=== PATIENT | female | born 1955 | race Caucasian/White ===

== ENCOUNTER 2023-07-22 11:13 | Outpatient (AMB) | payer MEDICARE, OTHER, SELFPAY ==
--- NOTE | 2023-07-22 11:24 | A.OFFPC_ITS ---
Vital Signs 07/22/23 11:28 Height 5 ft 2.6 in Weight 211 lb 8 oz BMI 37.9 BP 138/84 Blood Pressure Location Rt radial Position Sitting Respiration 14 Pulse Source Pulse Oximeter Temp 97.8 F Temp Source Oral Pulse Oximetry (%) 99 Oxygen Delivery Method Room Air Intake Visit Reasons: Establish Care transfer from [facility] Intake Note: New patient visit Continuum Of Care Manager Required: No Allergies No Known Allergies Allergy (Verified 07/22/23 11:24) Medication List - Last Reconciled 07/22/23 by Marguerite Castillo MD ezetimibe 10 mg PO DAILY nystatin (Nystop) 1 appl topical BID-TID pravastatin 10 mg PO BEDTIME raloxifene 60 mg PO DAILY Tobacco use date assessed: 07/22/23 Fall risk assessment: No Falls in past year Last assessed Fall Risk: 07/22/23 Dental Screening Dental Screen Date: 07/22/23 Did you have a dental visit in the last 12 months?: No Did you have a dental problem in the last 6 months where you did not have access to dental care?: No Was dental information given to patient?: Patient declined HPI HPI Comments History of Present Illness Details The patient is a 67 year old female with a past medical history of breast cancer, hyperlipidemia presenting to reestablish care CV: on pravastatin 10mg daily, zetia 10mg daily. History of breast cancer: UTD with monitoring. Follows with breast center. Continyues on raloxifene [facility] Medical History (Updated 07/27/23 @ 11:42 by Marguerite Castillo MD) Hypercholesteremia Family History (Updated 07/22/23 @ 12:17 by Lady Dominguez CMA) Father Diabetes Social History (Updated 07/22/23 @ 11:28 by Lady Dominguez CMA) Housing: House Patient Tobacco Use Status: Never used Tobacco service: No Current occupational status: retired Cognitive needs: No Hearing needs: No Vision needs: No Questionnaire PHQ-9 Over the last 2 weeks, how often have you been bothered by any of the following problems? 1. Little interest or pleasure in doing things: not at all 2. Feeling down, depressed, or hopeless: not at all 3. Trouble falling or staying asleep, or sleeping too much: not at all 4. Feeling tired or having little energy: not at all 5. Poor appetite or overeating: not at all 6. Feeling bad about yourself - or that you are a failure or have let yourself or your family down: not at all 7. Trouble concentrating on things, such as reading the newspaper or watching television: not at all 8. Moving or speaking so slowly that other people could have noticed. Or the opposite - being so fidgety or restless that you have been moving around a lot more than usual: not at all 9. Thoughts that you would be better off or of hurting yourself in some way: not at all Total score: 0 Depression Screening Interpretation: Negative Depression Screening Done: Yes 21134 - PHQ-9 Billing: Yes Source: Developed by Drs. Corey Yi, Dayna Vargas, Go Alexander and colleagues, with an educational marcin from [employer]. Thrive Questionnaire Date Thrive assessed: 07/22/23 I am a: Patient What is your living situation today?: I have a steady place to live Within the past 12 months, did the food you bought not last and you didn't have the money to get more?: Never true Within the past 12 months, did you worry whether your food would run out before you got money to buy more?: Never true Do you have trouble paying for medicines?: No Do you have trouble getting transportation to medical appointments?: No Do you have trouble paying your heating and electricity bill?: No Do you have trouble taking care of your child, family member or friend?: No Do you have trouble with day-to-day activities such as bathing, preparing meals, shopping, managing finances, etc.?: No Are you currently unemployed and looking for a job?: No Are you interested in more education?: No Please select the resources that you would like help with: None Currently or been in a relationship where the following occur: no concerns reported THRIVE Score: 0 AUDIT C Alcohol Use Questionnaire (AUDIT-C) 1. How often do you have a drink containing alcohol?: Never 3. How often do you have six or more drinks on one occasion?: Never Total Score: 0 MUSHTAQ-7 AMB Questionnaire MUSHTAQ-7 Date MUSHTAQ - 7 assessed: 07/22/23 Feeling nervous, anxious, or on edge: 0 = Not at all Not being able to stop or control worryin = Not at all Worrying too much about different things: 0 = Not at all Trouble relaxin = Not at all Being so restless that it is hard to sit still: 0 = Not at all Becoming easily annoyed or irritable: 0 = Not at all Feeling afraid as if something awful might happen: 0 = Not at all Total MUSHTAQ-7 score (0-4 normal; 5-9 mild; 10-14 moderate; 15-21 severe): 0 Source: Developed by Drs. Corey Yi, Dayna Vargas, Go Alexander and colleagues, with an educational marcin from [employer]. MUSHTAQ-7 Assessment Billing MUSHTAQ-7 Assessment Tool: MUSHTAQ-7 Assessment 24069 Review of Systems Const Details: see HPI Physical exam (Primary Care) Vital Signs: Last Vital Signs Temp 97.8 F 07/22/23 11:28 Resp 14 07/22/23 11:28 BP 138/84 07/22/23 11:28 Pulse Ox 99 07/22/23 11:28 Oxygen Delivery Method Room Air 07/22/23 11:28 PHYSICAL EXAM: GENERAL: Alert and oriented x 3. NAD EYES: EOMI. Anicteric. HENT: Moist mucous membranes. No scleral icterus. No cervical lymphadenopathy. LUNGS: Clear to auscultation bilaterally. CARDIOVASCULAR: Regular rate and rhythm. No murmur. No JVD. ABDOMEN: Soft, non-tender +bs EXTREMITIES: No edema. Non-tender. SKIN: No rashes or lesions. Warm. NEUROLOGIC: No focal neurological deficits. CN II-XII grossly intact PSYCHIATRIC: Cooperative. Appropriate mood and affect BMI result Body Mass Index 37.9 Tobacco/Smoking Status: Tobacco use Status Tobacco use date assessed 07/22/23 07/22/23 11:32 Patient Tobacco Use Status Never used Tobacco 07/22/23 11:32 PHQ-9: PHQ-9 Score PHQ-9: Total score 0 07/22/23 12:18 Depression Screening Interpretation: Negative Thrive Assessment: Date of Thrive Assessment Date Thrive assessed 07/22/23 07/22/23 12:17 Currently or been in a relationship where the following occur: no concerns reported Assessment and Plan Assessment & Plan (1) Hyperlipidemia: Code(s): E78.5 - Hyperlipidemia, unspecified Qualifiers: Hyperlipidemia type: unspecified Qualified Code(s): E78.5 - Hyperlipidemia, unspecified (2) History of breast cancer: Comment: continue f/up breast center Code(s): Z85.3 - Personal history of malignant neoplasm of breast Orders: Orders Vitamin B12 and Folate 07/23/23 E78.5 - Hyperlipidemia, unspecified, R41.3 - Other amnesia, Z13.0 - Encounter for screening for diseases of the blood and blood-forming organs and certain disorders involving the immune mechanism, Z13.228 - Encounter for screening for other metabolic disorders Vitamin D 1,25 dihydroxy 07/23/23 E78.5 - Hyperlipidemia, unspecified, R41.3 - Other amnesia, Z13.0 - Encounter for screening for diseases of the blood and blood-forming organs and certain disorders involving the immune mechanism, Z13.228 - Encounter for screening for other metabolic disorders Comprehensive Met. Panel 07/23/23 E78.5 - Hyperlipidemia, unspecified, R41.3 - Other amnesia, Z13.0 - Encounter for screening for diseases of the blood and blood-forming organs and certain disorders involving the immune mechanism, Z13.228 - Encounter for screening for other metabolic disorders Complete Blood Count Auto Diff 07/23/23 E78.5 - Hyperlipidemia, unspecified, R41.3 - Other amnesia, Z13.0 - Encounter for screening for diseases of the blood and blood-forming organs and certain disorders involving the immune mechanism, Z13.228 - Encounter for screening for other metabolic disorders Lipid Panel 07/23/23 E78.5 - Hyperlipidemia, unspecified, R41.3 - Other amnesia, Z13.0 - Encounter for screening for diseases of the blood and blood- forming organs and certain disorders involving the immune mechanism, Z13.228 - Encounter for screening for other metabolic disorders Referrals Cologuard Test Z12.11 - Encounter for screening for malignant neoplasm of colon, Z12.12 - Encounter for screening for malignant neoplasm of rectum Medications: New ezetimibe 10 mg PO DAILY 90 tabs 3RF 90 days pravastatin 10 mg PO BEDTIME 90 tabs 3RF 90 days Coding Level of Care Code Tele Est Pt Level 4 (09255) Diagnoses Hyperlipidemia, unspecified hyperlipidemia type E78.5 Hyperlipidemia type: unspecified History of breast cancer Z85.3 Additional Codes MUSHTAQ-7 Assessment Billing - MUSHTAQ-7 Assessment Tool: MUSHTAQ-7 Assessment 45316 ([id number])
[2023-07-22 11:28] VITALS: BP 138/84; RESP 14; TEMP 36.6; O2SAT 99; BMI 37.9
== END 2023-07-22 12:35 | disposition home or self-care (01) ==
PROVIDERS: PCP Internal Medicine; Visit Provider Internal Medicine
DX: E78.5 Hyperlipidemia, unspecified (principal); Z85.3 Personal history of malignant neoplasm of breast
CPT/HCPCS: 99214

== ENCOUNTER 2023-07-23 09:15 | Outpatient (REF) | payer MEDICARE, OTHER, SELFPAY ==
[2023-07-23 11:57] LABS: MANUAL DIFF FLAG NO
[2023-07-23 12:15] LABS: Basophils Percent Auto 0.6 % (0-2); Eosinophils Absolute Auto 0.2 X10*3/uL (0.0-0.4); Eosinophils Percent Auto 2.9 % (0-4); Hematocrit 39.9 % (37.0-47.0); Hemoglobin 12.9 g/dl (12.0-16.0); Imm Gran Abs Auto 0.02 X10*3/uL (0.00-0.03); Imm Gran Pct Auto 0.3 % (0.0-0.4); Lymphocytes Absolute Auto 2.6 X10*3/uL (1.2-4.9); Lymphocytes Percent Auto 39.9 % (20-40); Mean Corpuscular HGB Conc 32.3 g/dl (31.0-35.0); Mean Corpuscular Hemoglobin 30.2 pg (27.0-33.0); Mean Corpuscular Volume 93.4 fL (80.0-98.0); Mean Platelet Volume 12.8 fL (9.4-12.3); Monocytes Absolute Auto 0.5 X10*3/uL (0.1-1.2); Monocytes Percent Auto 7.4 % (2-11); Neutrophils Absolute Auto 3.2 x10*3/uL (2.0-8.3); Neutrophils Percent Auto 48.9 % (45-73); Platelet Count 172 X10*3/uL (160-400); Red Blood Count 4.27 X10*6/uL (4.20-5.50); Red Cell Distribution Width 13.7 % (11.0-16.0); White Blood Count 6.5 X10*3/uL (4.8-10.8)
[2023-07-23 12:36] LABS: Alanine Aminotransferase 27 U/L (0-31); Alkaline Phosphatase 60 U/L (39-117); Anion Gap 12 (12-20); Aspartate Amino Transferase 25 U/L (5-31); Bilirubin Total 0.5 mg/dL (0.0-1.0); Blood Urea Nitrogen 16 mg/dL (9-16); Calcium 9.4 mg/dL (8.4-10.2); Carbon Dioxide 28 mmol/L (22-29); Chloride 106 mmol/L (96-108); Cholesterol 194 mg/dL (<200); Estimated Glomerular Filt Rate > 60; Glucose Random 107 mg/dL (60-115); HDL Cholesterol 73 mg/dL (>40); LDL Cholesterol Calculated 104 mg/dL (<100); Potassium 3.8 mmol/L (3.3-5.1); Sodium 142 mmol/L (135-145); Total Protein 6.8 g/dL (6.5-8.0); Triglycerides 86 mg/dL (<150)
[2023-07-23 12:56] LABS: Folate 7.8 ng/mL (> or = 4.0); Vitamin B12 467 pg/mL (200-900)
[2023-07-29 15:43] LABS: VITAMIN D (1,25 OH) D3 16 pg/mL; Vit D (1,25-Dihydroxy) Total 46 pg/mL (18-72); Vitamin D (1,25 OH) D2 30 pg/mL
== END 2023-07-23 09:16 | disposition home or self-care (01) ==
LOC: HO.WFDLDS 09:15
PROVIDERS: Visit Provider Internal Medicine
DX: E78.5 Hyperlipidemia, unspecified (principal); Z13.0 Encounter for screening for diseases of the blood and blood-forming organs and certain disorders involving the immune mechanism; Z13.228 Encounter for screening for other metabolic disorders; R41.3 Other amnesia
CPT/HCPCS: 36415; 80053; 80061; 82607; 82652; 82746; 85025

== ENCOUNTER 2023-09-01 10:24 | Outpatient (AMB) | payer MEDICARE, OTHER, SELFPAY ==
[2023-09-01 10:29] VITALS: BP 112/58; PULSE 97; RESP 13; O2SAT 99; BMI 35.9
--- NOTE | 2023-09-01 10:29 | MHC.PC.OV ---
Vital Signs 09/01/23 10:29 Height 5 ft 5 in Weight 216 lb BMI 35.9 BP 112/58 L Blood Pressure Location Lt brachial Position Sitting Respiration 13 Pulse 97 Pulse Source Pulse Oximeter Pulse Oximetry (%) 99 Oxygen Delivery Method Room Air Intake Visit Reasons: est/lower back pain/possible pt needed? Intake Note: Patient is here to discuss low back pain. Patient is accompanied by her spouse, who states patients is having memory concerns. Manager Regional Sales Required: No Allergies No Known Allergies Allergy (Verified 09/01/23 10:36) Medication List - Last Reconciled 09/07/23 by Marguerite Castillo MD ezetimibe 10 mg PO DAILY 90 days nystatin (Nystop) 1 appl topical BID-TID pravastatin 10 mg PO BEDTIME 90 days prednisone 40 mg (2 x 20 mg) PO DAILY 5 days raloxifene 60 mg PO DAILY tramadol 50 mg PO Q8H PRN 7 days Tobacco use date assessed: 07/22/23 Fall risk assessment: No Falls in past year Last assessed Fall Risk: 09/01/23 Dental Screening Dental Screen Date: 07/22/23 HPI HPI Comments History of Present Illness Details The patient is a 67 year old female with a past medical history of breast cancer, hyperlipidemia presenting to [facility] care. She is accompanied by her CV: on pravastatin 10mg daily, zetia 10mg daily. She reports worsening memory issues over the past 1-2 years. Says after snf noticeable. She is trying do puzzles, sudoko etc Recently seen (08/22/23)in the [facility] ER for right buttock pain x 2 days. She had xray hip with pelvis. This showed no fracture, mild arthritic changes. SI joints normal on imaging. She continues to have moderate to severe pain in the mid right buttock. Denies rash. Fairly loaclized. Denies known injury History of breast cancer: UTD with monitoring. Follows with breast center. Continues on raloxifene The patient is a 67-year-old female with a past medical history of hyperlipidemia, hyperglycemia, nephrolithiasis, atypical lobular hyperplasia 2020 presenting for follow-up. ROS see HPI PHYSICAL EXAM: GENERAL: Alert and oriented x 3. NAD EYES: EOMI. Anicteric. HENT: Moist mucous membranes. No scleral icterus. No cervical lymphadenopathy. LUNGS: Clear to auscultation bilaterally. CARDIOVASCULAR: Regular rate and rhythm. No murmur. No JVD. ABDOMEN: Soft, non-tender +bs MSK: SI joint tender to palpation. FROM EXTREMITIES: No edema. Non-tender. SKIN: No rashes or lesions. Warm. NEUROLOGIC: No focal neurological deficits. CN II-XII grossly intact PSYCHIATRIC: Cooperative. Appropriate mood and affect [facility] Medical History Hypercholesteremia Family History Father Diabetes Social History Housing: House Patient Tobacco Use Status: Never used Tobacco e-Cigarette/Vaping Use: Never Used service: No Current occupational status: retired Cognitive needs: No Hearing needs: No Vision needs: No Questionnaire Thrive Questionnaire Date Thrive assessed: 07/22/23 MUSHTAQ-7 AMB Questionnaire MUSHTAQ-7 Date MUSHTAQ - 7 assessed: 07/22/23 Source: Developed by Drs. Corey Yi, Dayna Vargas, Go Alexander and colleagues, with an educational marcin from [employer]. Physical exam (Primary Care) Vital Signs: Last Vital Signs Pulse 97 09/01/23 10:29 Resp 13 09/01/23 10:29 BP 112/58 L 09/01/23 10:29 Pulse Ox 99 09/01/23 10:29 Oxygen Delivery Method Room Air 09/01/23 10:29 BMI result Body Mass Index 35.9 Tobacco/Smoking Status: Tobacco use Status Tobacco use date assessed 07/22/23 09/01/23 10:39 Patient Tobacco Use Status Never used Tobacco 09/01/23 10:39 e-Cigarette/Vaping Use Never Used 09/01/23 10:39 Thrive Assessment: Date of Thrive Assessment Date Thrive assessed 07/22/23 09/01/23 10:39 Assessment and Plan Assessment & Plan (1) Memory change: Code(s): R41.3 - Other amnesia Plan: declines referral to memory clinic declines aricept trial. She just started prevagen and wants to try that for a few months (2) SI (sacroiliac) joint dysfunction: Code(s): M53.3 - Sacrococcygeal disorders, not elsewhere classified Plan: Oral prednisone, otc analgeics, tramadol sparing as needed. If pain persists will get xrays ortho/physiatry (3) History of breast cancer: Comment: continue f/up breast center Code(s): Z85.3 - Personal history of malignant neoplasm of breast (4) Hyperlipidemia: Code(s): E78.5 - Hyperlipidemia, unspecified Qualifiers: Hyperlipidemia type: unspecified Qualified Code(s): E78.5 - Hyperlipidemia, unspecified Medications: New prednisone 40 mg (2 x 20 mg) PO DAILY 5 days 10 tabs 0RF tramadol 50 mg PO Q8H 7 days PRN 21 tabs 0RF pain Coding Level of Care Code Est Pt Level 4 (12941) Complex EM visit Add On G2211 Diagnoses Memory change R41.3 SI (sacroiliac) joint dysfunction M53.3 History of breast cancer Z85.3 Hyperlipidemia, unspecified hyperlipidemia type E78.5 Hyperlipidemia type: unspecified
== END 2023-09-01 13:07 | disposition home or self-care (01) ==
PROVIDERS: PCP Internal Medicine; Visit Provider Internal Medicine
DX: R41.3 Other amnesia (principal); M53.3 Sacrococcygeal disorders, not elsewhere classified; Z85.3 Personal history of malignant neoplasm of breast; E78.5 Hyperlipidemia, unspecified
CPT/HCPCS: 99214; G2211

== ENCOUNTER 2023-09-12 09:54 | Outpatient (AMB) | payer MEDICARE, OTHER, SELFPAY ==
--- NOTE | 2023-09-12 10:14 | A.OFFPC_ITS ---
Vital Signs 09/12/23 10:15 Height 5 ft 3 in Weight 216 lb BMI 38.3 BP 143/70 H Blood Pressure Location Rt brachial Position Sitting Pulse 67 Pulse Source Pulse Oximeter Pulse Oximetry (%) 99 Oxygen Delivery Method Room Air Intake Visit Reasons: Hip pain Intake Note: Patient reports she is here for a reevaluation of her hip pain. Regional Safety Manager Required: No Accompanied by: Spouse Allergies No Known Allergies Allergy (Verified 09/12/23 10:17) Medication List - Last Reconciled 09/14/23 by Marguerite Castillo MD ezetimibe 10 mg PO DAILY 90 days nystatin (Nystop) 1 appl topical BID-TID pravastatin 10 mg PO BEDTIME 90 days raloxifene 60 mg PO DAILY tramadol 50 mg PO Q8H PRN 30 days Tobacco use date assessed: 07/22/23 Dental Screening Dental Screen Date: 07/22/23 HPI HPI Comments History of Present Illness Details The patient is a 68 year old female with a past medical history of breast cancer, hyperlipidemia presenting for follow up Seen last 08/31 for right buttock pain. Took a five day course of prednisone which helped while taking but pain recurred off the medication. Uses tramadol with good relief of symptoms for a few hours. Pain continues 5-08/26. Cant pinpoint specific aggravating factors. Recently seen (08/22/23)in the [facility] ER for right buttock pain x 2 days. She had xray hip with pelvis. This showed no fracture, mild arthritic changes. SI joints normal on imaging. She continues to have moderate to severe pain in the mid right buttock. Denies rash. Fairly loaclized. Denies known injury CV: on pravastatin 10mg daily, zetia 10mg daily. She reports worsening memory issues over the past 1-2 years. Says after nursing home noticeable. She is trying do puzzles, sudoko etc History of breast cancer: UTD with monitoring. Follows with breast center. Continues on raloxifene ROS see HPI PHYSICAL EXAM: GENERAL: Alert and oriented x 3. NAD EYES: EOMI. Anicteric. HENT: Moist mucous membranes. No scleral icterus. No cervical lymphadenopathy. LUNGS: Clear to auscultation bilaterally. CARDIOVASCULAR: Regular rate and rhythm. No murmur. No JVD. ABDOMEN: Soft, non-tender +bs MSK: SI joint tender to palpation. FROM EXTREMITIES: No edema. Non-tender. SKIN: No rashes or lesions. Warm. NEUROLOGIC: No focal neurological deficits. CN II-XII grossly intact PSYCHIATRIC: Cooperative. Appropriate mood and affect [facility] Medical History (Updated 09/12/23 @ 10:28 by Marguerite Castillo MD) Hypercholesteremia Surgical History (Updated 09/12/23 @ 10:18 by Adeline Steinberg CMA) No pertinent past surgical history Family History Father Diabetes Social History Housing: House Patient Tobacco Use Status: Never used Tobacco e-Cigarette/Vaping Use: Never Used service: No Current occupational status: retired Cognitive needs: No Hearing needs: No Vision needs: No Questionnaire Thrive Questionnaire Date Thrive assessed: 07/22/23 MUSHTAQ-7 AMB Questionnaire MUSHTAQ-7 Date MUSHTAQ - 7 assessed: 07/22/23 Source: Developed by Drs. Corey Yi, Dayna Vargas, Go Alexander and colleagues, with an educational marcin from [employer]. Physical exam (Primary Care) Vital Signs: Last Vital Signs Pulse 67 09/12/23 10:15 BP 143/70 H 09/12/23 10:15 Pulse Ox 99 09/12/23 10:15 Oxygen Delivery Method Room Air 09/12/23 10:15 BMI result Body Mass Index 38.3 Tobacco/Smoking Status: Tobacco use Status Tobacco use date assessed 07/22/23 09/12/23 10:17 Patient Tobacco Use Status Never used Tobacco 09/12/23 10:17 e-Cigarette/Vaping Use Never Used 09/12/23 10:17 Thrive Assessment: Date of Thrive Assessment Date Thrive assessed 07/22/23 09/12/23 10:17 Assessment and Plan Assessment & Plan (1) SI (sacroiliac) joint dysfunction: Code(s): M53.3 - Sacrococcygeal disorders, not elsewhere classified Plan: Referral placed to physiatry CT ordered for ?sacroiliitis. Too claustrophobic for open MRI Continue prn tramadol Continue otc analgesia. Defers PT at this time until imaging/physiatry consult (2) Right buttock pain: Code(s): M79.18 - Myalgia, other site Orders: Orders CT pelvis wo/w IV con 09/12/23 M53.2X8 - Spinal instabilities, sacral and sacrococcygeal region, M53.3 - Sacrococcygeal disorders, not elsewhere classified, M79.18 - Myalgia, other site, Z85.3 - Personal history of malignant neoplasm of breast Referrals Physiatry Referral M53.3 - Sacrococcygeal disorders, not elsewhere classified Medications: Changed From tramadol 50 mg PO Q8H 7 days PRN 21 tabs 0RF pain To tramadol 50 mg PO Q8H 30 days PRN 90 tabs 0RF pain Discontinued prednisone Discontinued Reason: Doctor's Order 40 mg (2 x 20 mg) PO DAILY 5 days 10 tabs 0RF Coding Level of Care Code Est Pt Level 4 (05234) Complex EM visit Add On G2211 Diagnoses SI (sacroiliac) joint dysfunction M53.3 Right buttock pain M79.18
[2023-09-12 10:15] VITALS: BP 143/70; PULSE 67; O2SAT 99; BMI 38.3
== END 2023-09-12 10:43 | disposition home or self-care (01) ==
PROVIDERS: PCP Internal Medicine; Visit Provider Internal Medicine
DX: M53.3 Sacrococcygeal disorders, not elsewhere classified (principal); M79.18 Myalgia, other site
CPT/HCPCS: 99214; G2211

== ENCOUNTER 2023-12-15 15:53 | Outpatient (AMB) | payer MEDICARE, OTHER, SELFPAY ==
--- NOTE | 2023-12-15 16:02 | A.OFFPC_ITS ---
Vital Signs 12/15/23 16:05 Height 5 ft 5 in Weight 214 lb 8 oz BMI 35.7 BP 136/84 Blood Pressure Location Lt brachial Position Sitting Pulse 75 Pulse Source Pulse Oximeter Pulse Oximetry (%) 99 Oxygen Delivery Method Room Air Intake Visit Reasons: Memory problems Intake Note: Memory issues Horse Breaker Required: No Allergies No Known Allergies Allergy (Verified 12/15/23 16:03) Tobacco use date assessed: 07/22/23 Dental Screening Dental Screen Date: 07/22/23 HPI HPI Comments History of Present Illness Details The patient is a 68 year old female with a past medical history of breast cancer, hyperlipidemia presenting for follow up. She is accompanied by her daughter Expressing short term memory problems Asks the same question 5 or 10 minutes after asking it. A few weeks ago forget that she had a fight with her daughter the night before Forgetting names She denies issues with driving/directions Denies issues with cooking More irritable She tried prevagen without any noticeable improvement Seen last 08/31 for right buttock pain. Took a five day course of prednisone which helped while taking but pain recurred off the medication. Uses tramadol with good relief of symptoms for a few hours. Pain continues 5-08/26. Cant pinpoint specific aggravating factors. Recently seen (08/22/23)in the [facility] ER for right buttock pain x 2 days. She had xray hip with pelvis. This showed no fracture, mild arthritic changes. SI joints normal on imaging. She continues to have moderate to severe pain in the mid right buttock. Denies rash. Fairly loaclized. Denies known injury CV: on pravastatin 10mg daily, zetia 10mg daily. She reports worsening memory issues over the past 1-2 years. Says after skilled nursing noticeable. She is trying do puzzles, sudoko etc History of breast cancer: UTD with monitoring. Follows with breast center. Continues on raloxifene ROS see HPI PHYSICAL EXAM: GENERAL: Alert and oriented x 3. NAD EYES: EOMI. Anicteric. HENT: Moist mucous membranes. No scleral icterus. No cervical lymphadenopathy. LUNGS: Clear to auscultation bilaterally. CARDIOVASCULAR: Regular rate and rhythm. No murmur. No JVD. ABDOMEN: Soft, non-tender +bs MSK: SI joint tender to palpation. FROM EXTREMITIES: No edema. Non-tender. SKIN: No rashes or lesions. Warm. NEUROLOGIC: No focal neurological deficits. CN II-XII grossly intact PSYCHIATRIC: Cooperative. Appropriate mood and affect [facility] Medical History (Updated 09/12/23 @ 10:28 by Marguerite Castillo MD) Hypercholesteremia Surgical History (Updated 09/12/23 @ 10:18 by Adeline Steinberg CMA) No pertinent past surgical history Family History Father Diabetes Social History Housing: House Patient Tobacco Use Status: Never used Tobacco e-Cigarette/Vaping Use: Never Used service: No Current occupational status: retired Cognitive needs: No Hearing needs: No Vision needs: No Questionnaire PHQ-9 Over the last 2 weeks, how often have you been bothered by any of the following problems? 1. Little interest or pleasure in doing things: not at all 2. Feeling down, depressed, or hopeless: not at all 3. Trouble falling or staying asleep, or sleeping too much: several days 4. Feeling tired or having little energy: not at all 5. Poor appetite or overeating: not at all 6. Feeling bad about yourself - or that you are a failure or have let yourself or your family down: not at all 7. Trouble concentrating on things, such as reading the newspaper or watching television: not at all 8. Moving or speaking so slowly that other people could have noticed. Or the opposite - being so fidgety or restless that you have been moving around a lot more than usual: not at all 9. Thoughts that you would be better off or of hurting yourself in some way: not at all Total score: 1 Source: Developed by Drs. Corey Yi, Dayna Vargas, Go Alexander and colleagues, with an educational marcin from [employer]. Thrive Questionnaire Date Thrive assessed: 12/13/23 I am a: Patient What is your living situation today?: I have a steady place to live Within the past 12 months, did the food you bought not last and you didn't have the money to get more?: I choose not to answer this question Within the past 12 months, did you worry whether your food would run out before you got money to buy more?: I choose not to answer this question Do you have trouble paying for medicines?: I choose not to answer this question Do you have trouble getting transportation to medical appointments?: I choose not to answer this question Do you have trouble paying your heating and electricity bill?: I choose not to answer this question Do you have trouble taking care of your child, family member or friend?: I choose not to answer this question Do you have trouble with day-to-day activities such as bathing, preparing meals, shopping, managing finances, etc.?: I choose not to answer this question Are you currently unemployed and looking for a job?: No Are you interested in more education?: No Please select the resources that you would like help with: None Currently or been in a relationship where the following occur: No concerns reported THRIVE Score: 0 AUDIT C Alcohol Use Questionnaire (AUDIT-C) 1. How often do you have a drink containing alcohol?: Never 2. How many drinks containing alcohol do you have on a typical day when you are drinking?: 1 or 2 3. How often do you have six or more drinks on one occasion?: Never Total Score: 0 MUSHTAQ-7 AMB Questionnaire MUSHTAQ-7 Date MUSHTAQ - 7 assessed: 07/22/23 Feeling nervous, anxious, or on edge: 0 = Not at all Not being able to stop or control worryin = Not at all Worrying too much about different things: 1 = Several days Trouble relaxin = Not at all Being so restless that it is hard to sit still: 0 = Not at all Becoming easily annoyed or irritable: 1 = Several days Feeling afraid as if something awful might happen: 0 = Not at all Total MUSHTAQ-7 score (0-4 normal; 5-9 mild; 10-14 moderate; 15-21 severe): 2 Source: Developed by Drs. Corey Yi, Dayna Vargas, Go Alexander and colleagues, with an educational marcin from [employer]. Physical exam (Primary Care) Vital Signs: Last Vital Signs Pulse 75 12/15/23 16:05 BP 136/84 12/15/23 16:05 Pulse Ox 99 12/15/23 16:05 Oxygen Delivery Method Room Air 12/15/23 16:05 BMI result Body Mass Index 35.7 Tobacco/Smoking Status: Tobacco use Status Tobacco use date assessed 07/22/23 12/15/23 16:08 Patient Tobacco Use Status Never used Tobacco 12/15/23 16:08 e-Cigarette/Vaping Use Never Used 12/15/23 16:08 PHQ-9: PHQ-9 Score PHQ-9: Total score 1 12/18/23 09:52 Thrive Assessment: Date of Thrive Assessment Date Thrive assessed 12/13/23 12/15/23 16:08 Currently or been in a relationship where the following occur: No concerns reported Coding Level of Care Code Est Pt Level 4 (28346) Diagnoses Memory change R41.3 Assessment & Plan Assessment & Plan (1) Memory change: Code(s): R41.3 - Other amnesia Category: Medical Plan: Labs reviewed. Additional labs ordered Denies depressive symptoms Referral to memory clinic for evaluation Orders: Orders TSH reflex Free T4 12/15/23 R41.3 - Other amnesia Vitamin B12 and Folate 12/15/23 R41.3 - Other amnesia Referrals Geriatric Psychiatry Referral R41.3 - Other amnesia Medications: New bupropion HCl XL (Wellbutrin XL) 150 mg PO QAM 90 tabs 3RF
[2023-12-15 16:05] VITALS: BP 136/84; PULSE 75; O2SAT 99; BMI 35.7
== END 2023-12-15 17:06 | disposition home or self-care (01) ==
LOC: HO.HMCFM 15:54
PROVIDERS: PCP Internal Medicine; Visit Provider Internal Medicine
DX: R41.3 Other amnesia (principal)

== ENCOUNTER → 2023-12-15 15:53 | Outpatient (BNVA) | payer MEDICARE, OTHER, SELFPAY | PROVIDERS: PCP Internal Medicine; Visit Provider Internal Medicine | DX: R41.3 Other amnesia (principal) | CPT/HCPCS: 99212 ==